=== PATIENT | male | born 2000 | race Caucasian/White ===

== ENCOUNTER 2024-09-25 15:32 | Emergency (ER) | payer OTHER, SELFPAY ==
[2024-09-25 15:35] VITALS: BP 132/85; PULSE 83; RESP 16; TEMP 36.6; O2SAT 98; BMI 20.9
--- NOTE | 2024-09-25 15:56 | EX.ED.VIS.PS ---
HPI <NURYS Fisher - Last Filed: 09/25/24 19:20> HPI - Psych History of Present Illness Chief Complaint: Mental Health Narrative Narrative: 24-year-old female was brought in by crisis for mental health evaluation. The history is provided by his Blaine goldberg for 1 year. She states he has had mental health problems for several years and at one point had a diagnosis of schizoaffective disorder and was on medication but stopped taking it because he did not like it. Over the last few weeks he has been increasingly secluding himself. She states that he was missing for period in June and they found his truck parked somewhere and he walked to [place] and was found there. When friend brought him home he was staying at their house but had to leave and has been back at his parents house recently. Over the last few days he has been secluded himself in their barn and not eating or drinking or bathing. His fijordan states he said he wanted to kill himself several weeks ago but did not have a plan and has not made similar statements again. He also reported hearing voices at 1 point but did not give specifics. He really has not been talking to her over the last few days. His parents were in contact with crisis and were taking some type of classes teaching them how to talk to and support people with mental health problems and when symptoms worsened they gave crisis phone number to the hannah? today who called them. [facility] <NURYS Fisher - Last Filed: 09/25/24 19:20> [facility] Medical History (Updated 09/25/24 @ 17:[address] Warren Lovelace, ) Schizo-affective psychosis Allergy/AdvReac Type Severity Reaction Status Date / Time No Known Allergies Allergy Verified 09/25/24 15:37 Social History Smoking Status: Never smoker ROS <NURYS Fisher Last Filed: 09/25/24 19:20> ROS ED ROS Narrative Unable to obtain because patient does not provide history. No illness according to his yusuf. EXAM <NURYS Fisher - Last Filed: 09/25/24 19:20> Physical Exam Narrative Exam Narrative: CONST: Patient sitting in no acute distress. EYES: Normal inspection. NECK: Normal inspection. RESP: No respiratory distress, CTAB. CVS: Regular rate and rhythm, no murmur, no gallop. ABD: Soft and nontender, no guarding or rebound, nondistended. SKIN: Color normal, no rash, warm, dry, intact. EXTREMITIES: Normal appearance, no pedal edema. NEURO: Alert send normal sagittal balance. Does not make eye contact. Withdrawn. Does not speak. PSYCH: Normal affect. Const Vital Signs: 09/25/24 15:35 09/25/24 16:33 Temperature 97.9 F Temperature Source Oral Pulse Rate 83 82 Respiratory Rate 16 18 Blood Pressure 132/85 H Blood Pressure Mean 100 Pulse Ox 98 99 Oxygen Delivery Method Room Air Room Air <Dr. Warren Lovelace DO - Last Filed: 09/25/24 20:25> Physical Exam Const Vital Signs: 09/25/24 15:35 09/25/24 16:33 Temperature 97.9 F Temperature Source Oral Pulse Rate 83 82 Respiratory Rate 16 18 Blood Pressure 132/85 H Blood Pressure Mean 100 Pulse Ox 98 99 Oxygen Delivery Method Room Air Room Air MDM <NURYS Fisher - Last Filed: 09/25/24 19:20> MDM MDM Narrative Medical decision making narrative: History was gathered from patient's fianc? 25-year-old male with reported history of schizoaffective disorder not currently on any medications presents with several weeks of gradual worsening symptoms including being withdrawn, not speaking, not eating or drinking or taking care of oneself. He reported a suicidal statement several weeks ago without a plan. His fianc?e contacted crisis today who recommended they come in. Patient is awake alert but does not make eye contact or speak. We did allow a basic examination which is unremarkable. Blood work was obtained for clearance. CBC and CMP are normal. Alcohol and urine tox screens are negative. Patient is pink slipped as he cannot care for himself and has untreated mental illness requiring stabilization. I will contact crisis for placement. Lab Data Attestation: I reviewed the patient's lab results. Labs: Laboratory Results - last 24 hr 09/25/24 09/25/24 16:05 16:30 WBC 6.0 RBC 4.95 Hgb 15.0 Hct 43.0 MCV 86.9 MCH 30.3 MCHC 34.9 RDW Std Deviation 39.0 RDW Coeff of Denise 12.2 Plt Count 201 MPV 9.4 Immature Gran % (Auto) 0.300 Neut % (Auto) 71.0 H Lymph % (Auto) 18.3 L [place] % (Auto) 7.6 Eos % (Auto) 2.3 Baso % (Auto) 0.5 Absolute Neuts (auto) 4.2 Absolute Lymphs (auto) 1.09 Nucleated RBC % 0 Sodium 140 Potassium 3.8 Chloride 103 Carbon Dioxide 26.2 Anion Gap 11 BUN 8 Creatinine 0.92 Estim Creat Clear Calc 115.81 Est GFR (MDRD) Non-Af 119 BUN/Creatinine Ratio 8.9 L Glucose 103 H Calcium 9.2 Total Bilirubin 0.55 AST 15 ALT < 5 Alkaline Phosphatase 85 Total Protein 7.2 Albumin 4.7 Globulin 2.5 Albumin/Globulin Ratio 1.9 Urine Opiates Screen NEGATIVE U Buprenorphine Qual NEGATIVE Ur Oxycodone Screen NEGATIVE Urine Methadone Screen NEGATIVE Urine Fentanyl Screen NEGATIVE Ur Barbiturates Screen NEGATIVE Ur Phencyclidine Scrn NEGATIVE Ur Amphetamines Screen NEGATIVE U Benzodiazepines Scrn NEGATIVE Urine Cocaine Screen NEGATIVE U Cannabinoids Screen NEGATIVE Ethyl Alcohol < 10.1 <Dr. Warren Lovelace, DO - Last Filed: 09/25/24 20:25> MDM History & Record Review Discussion w/independent historian: Patient, Family and Other (Community crisis long term care social worker) Lab Data Labs: Laboratory Results - last 24 hr 09/25/24 09/25/24 16:05 16:30 WBC 6.0 RBC 4.95 Hgb 15.0 Hct 43.0 MCV 86.9 MCH 30.3 MCHC 34.9 RDW Std Deviation 39.0 RDW Coeff of Denise 12.2 Plt Count 201 MPV 9.4 Immature Gran % (Auto) 0.300 Neut % (Auto) 71.0 H Lymph % (Auto) 18.3 L [place] % (Auto) 7.6 Eos % (Auto) 2.3 Baso % (Auto) 0.5 Absolute Neuts (auto) 4.2 Absolute Lymphs (auto) 1.09 Nucleated RBC % 0 Sodium 140 Potassium 3.8 Chloride 103 Carbon Dioxide 26.2 Anion Gap 11 BUN 8 Creatinine 0.92 Estim Creat Clear Calc 115.81 Est GFR (MDRD) Non-Af 119 BUN/Creatinine Ratio 8.9 L Glucose 103 H Calcium 9.2 Total Bilirubin 0.55 AST 15 ALT < 5 Alkaline Phosphatase 85 Total Protein 7.2 Albumin 4.7 Globulin 2.5 Albumin/Globulin Ratio 1.9 Urine Opiates Screen NEGATIVE U Buprenorphine Qual NEGATIVE Ur Oxycodone Screen NEGATIVE Urine Methadone Screen NEGATIVE Urine Fentanyl Screen NEGATIVE Ur Barbiturates Screen NEGATIVE Ur Phencyclidine Scrn NEGATIVE Ur Amphetamines Screen NEGATIVE U Benzodiazepines Scrn NEGATIVE Urine Cocaine Screen NEGATIVE U Cannabinoids Screen NEGATIVE Ethyl Alcohol < 10.1 Management Discussion w/another healthcare provider: sawmill relief worker/Case management and Behavioral health Treatment and Re-Evaluation Narrative: I have personally performed a face to face assessment of the patient and have reviewed the MIRZA Note. I performed a substantive portion of the visit including all aspects of the following. 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 Patient reportedly has a history of schizoaffective disorder. He has been very self isolated for recently. There has been comments of suicidality to the family. Family notes that he is mentioned auditory hallucinations. He is not currently on psychiatric medications. Patient has been lacking self-care and nutrition. Exam is patient is not speaking with staff. He will occasionally nod his head yes or no. He appears very internally stimulated clenching his fist. He appears distracted. Medical Decison Making I am going to pink slip the patient at this time. Psychiatric screening labs were obtained and reviewed. We will be working with community crisis to transfer the patient to psychiatric facility Discharge Plan Triage Chief Complaint: Mental Health ED Midlevel Provider: Karine August ED Provider: Warren Lovelace Dx/Rx/DC Orders Clinical Impression: Auditory hallucination, Suicidal thoughts, Schizoaffective disorder Primary Care Provider: Care Physician,No Primary Referrals: Care Physician,No Primary [Primary Care Provider] - Print Language: Kazakh Disposition Disposition: Psychiatric Hospital or Unit
--- NOTE | 2024-09-25 16:05 | ED.RN ---
Pt does not answer questions, girlfriend at bedside gives all information. Pt opens mouth and attempts to speak but does not make any noise. Per SO pt states he should just kill himself several weeks ago. He did not elaborate on a plan, but has not made further statements.
[2024-09-25 16:24] LABS: Absolute Lymphocyte Count 1.09 X10^3/uL (0.83-4.51); Absolute Neutrophil Count 4.2 X10^3/uL (2.0-7.7); Basophil# 0.03 X10^3/uL; Basophil% 0.5 % (0-1); Eosinophil# 0.14 X10^3/uL; Eosinophils% 2.3 % (0-5); Lymphocyte # 1.09 X10^3/ul (0.83-4.51); Lymphocyte % 18.3 % (19-41); Mean Corp Hgb Conc 34.9 g/dL (32-36); Mean Corpuscular Hgb 30.3 pg (27.0-32.0); Mean Corpuscular Volume 86.9 fL (80-94); Mean Platelet Vol. 9.4 fl (6.2-12.0); Monocyte# 0.45 X10^3/uL; Monocyte% 7.6 % (0-10); NRBC Flagged by Analyzer 0 % (0-5); Neutrophil # 4.23 X10^3/uL (2.7-7.7); Platelet Count 201 K/mm3 (150-450); RBC Distribution Width CV 12.2 % (11.6-14.6); Red Blood Count 4.95 M/mm3 (4.6-6.2)
[2024-09-25 16:33] VITALS: PULSE 82; RESP 18; O2SAT 99
[2024-09-25 16:45] LABS: Alcohol, Blood (Medical)-Serum < 10.1 mg/dL (<=10.0)
[2024-09-25 16:51] LABS: ALB/GLOB Ratio 1.9 RATIO (0.9-2.4); AST(SGOT) 15 U/L (<=37); Alanine Aminotransfer ALT/SGPT < 5 U/L (<=46); Albumin, Serum 4.7 g/dL (3.5-5.0); Alkaline Phosphatase 85 U/L (40-129); Anion Gap 11 (5-15); BUN 8 mg/dL (4-19); BUN/Creat Ratio 8.9 RATIO (10-20); Calcium,Total 9.2 mg/dL (7.6-11.0); Carbon Dioxide 26.2 mmol/L (21.0-32.0); Chloride 103 mmol/L (98-108); Creatinine, Serum 0.92 mg/dL (0.70-1.20); EST Glomerular Filtration Rate 119 (>60); Estimated Creatinine Clearance 115.81 ml/min (50-250); Globulin 2.5 g/dL (2.2-4.2); Glucose 103 mg/dL (70-99); Potassium 3.8 mmol/L (3.3-5.1); Protein, Total 7.2 g/dL (5.9-8.4); Sodium Level 140 mmol/L (133-145); Total Bilirubin 0.55 mg/dL (0.00-1.30)
[2024-09-25 17:37] LABS: Amphetamine Urine NEGATIVE (<1000 ng/mL); Barbiturate Urine NEGATIVE (< 200 ng/mL); Benzodiazepine Urine NEGATIVE (< 200 ng/mL); Buprenorphine Urine NEGATIVE (< 200 ng/mL); Cocaine Urine NEGATIVE (< 300 ng/mL); Fentanyl, Urine NEGATIVE; Methadone Urine NEGATIVE (< 300 ng/mL); Opiates Urine NEGATIVE (< 300 ng/mL); Oxycodone, Urine NEGATIVE (< 100 ng/mL); PCP Urine NEGATIVE (< 25 ng/mL); THC Urine NEGATIVE (< 50 ng/mL)
--- NOTE | 2024-09-25 19:17 | ED.RN ---
Pt's SO states pt has told her the voices he's hearing are telling him he's too evil to be around other people. ED provider updated.
[2024-09-26 00:07] VITALS: BP 120/80; PULSE 82; RESP 18; TEMP 36.6; O2SAT 98
== END 2024-09-26 04:06 ==
PROVIDERS: Physician Assistant; Emergency Provider Emergency Medicine; Visit Provider Emergency Medicine
DX: F25.9 Schizoaffective disorder, unspecified (principal); R45.851 Suicidal ideations
CPT/HCPCS: 80053; 80307; 82077; 85025; 99283